=== PATIENT | male | born 1970 | race Two or more races ===

== ENCOUNTER 2023-07-04 19:55 | Inpatient (IN) | payer MEDICAID, OTHER ==
[~2023-07-04] VITALS: Ht 188 cm; Wt 102.3 kg
[2023-07-04 21:54] LABS: Urine Bacteria NONE SEEN /hpf (None Seen); Urine Blood Negative /uL (Negative); Urine Clarity Clear (Clear); Urine Color Colorless (Yellow); Urine Protein, UAD Negative (Negative); Urine Specific Gravity 1.033 (1.001-1.035); Urine Urobilinogen Normal (Negative); Urine WBC <1 /hpf (0 - 3); Urine pH 5.5 (5.0-8.0)
[2023-07-04 21:58] LABS: Basophils # (auto) 0.1 10 ^3/uL (0-0.2); Basophils % (auto) 0.4 % (0.0-2.0); Eosinophils # (auto) 0 10 ^3/uL (0-0.8); Eosinophils % (auto) 0.1 % (0.0-7.0); Hematocrit 42.4 % (41.0-53.0); Hemoglobin 14.7 g/dL (13.5-17.5); Lymphocytes # (auto) 1.2 10 ^3/uL (0.4-5.4); Lymphocytes % (auto) 7.9 % (10.0-50.0); Mean Corpuscular Hemoglobin 31.6 pg (28.0-32.0); Mean Corpuscular Hgb Conc. 34.6 g/dL (32.0-36.0); Mean Corpuscular Volume 91.3 fL (80.0-100.0); Neutrophils # (auto) 12.6 10 ^3/uL (1.6-8.6); Neutrophils % (auto) 84.6 % (37.0-80.0); Nucleated Red Blood Cells % 0.2 %; Red Blood Cells 4.64 10^6/uL (4.5-5.90); Red Cell Distribution Width 12.7 % (11.8-14.3); White Blood Cell 14.8 10^3/uL (4.4-10.8)
[2023-07-04 22:07] LABS: Alanine Aminotransferase 15 U/L (7-40); Albumin 4.3 g/dL (3.2-4.8); Alkaline Phosphatase 90 U/L (46-116); Anion Gap 9.9 (5-15); Aspartate Aminotransferase 10 U/L (13-40); BUN/Creatinine Ratio 12.4 (10.0-20.0); Blood Urea Nitrogen 11 mg/dL (9-23); Calcium 9.3 mg/dL (8.5-10.1); Carbon Dioxide 20.1 mmol/L (20-30); Chloride 100 mmol/L (98-107); Glucose 343 mg/dL (74-106); Sodium 130 mmol/L (136-145); Total Protein 7.5 g/dL (5.7-8.2)
[2023-07-05] MEDS ORDERED: IOHEXOL 300 MG/ML 100ML BOTTLE IJ ONE (02:45)
[2023-07-05] MEDS ORDERED: cefTRIAXone 1GM/50ML D5W 50 ML IV ONE (04:00)
[2023-07-05] MEDS ORDERED: HYDROmorphone HCL 2 MG/ML VL/or syr IV ONE (04:00)
[2023-07-05] MEDS ORDERED: ONDANSETRON HCL 4 MG/2 ML VIAL IV ONE (04:00)
[2023-07-05] MEDS ORDERED: ACETAMINOPHEN 325 MG TAB PO PRN (07:45)
[2023-07-05] MEDS ORDERED: DEXTROSE (50%) 50ML SYRG IV PRN ×4 (07:45→21:15)
[2023-07-05] MEDS ORDERED: ONDANSETRON HCL 4 MG/2 ML VIAL IV PRN (07:45)
[2023-07-05] MEDS ORDERED: DOCUSATE SOD 100 MG CAP PO PRN (07:45)
[2023-07-05] MEDS: SODIUM CHLORIDE 0.9% 1,000 ML IV SCH ×2 (07:55→23:14)
[2023-07-05] MEDS: INSULIN LANTUS (GLARGINE) 1 /0.01ml (100units/ml) SC SCH ×2 (08:01→21:46)
[2023-07-05 08:06] LABS: Basophils # (auto) 0.1 10 ^3/uL (0-0.2); Basophils % (auto) 0.4 % (0.0-2.0); Eosinophils # (auto) 0 10 ^3/uL (0-0.8); Hemoglobin 14.9 g/dL (13.5-17.5); Lymphocytes % (auto) 12.2 % (10.0-50.0); Mean Corpuscular Hemoglobin 31.3 pg (28.0-32.0); Mean Corpuscular Hgb Conc. 33.8 g/dL (32.0-36.0); Mean Corpuscular Volume 92.9 fL (80.0-100.0); Monocytes # (auto) 1.3 10 ^3/uL (0-1.3); Monocytes % (auto) 7.7 % (0.0-12.0); Neutrophils # (auto) 12.9 10 ^3/uL (1.6-8.6); Neutrophils % (auto) 79.7 % (37.0-80.0); Nucleated Red Blood Cells % 0.1 %; Red Blood Cells 4.74 10^6/uL (4.5-5.90); Red Cell Distribution Width 12.6 % (11.8-14.3); White Blood Cell 16.2 10^3/uL (4.4-10.8)
[2023-07-05] MEDS ORDERED: NITROGLYCERIN 0.4 MG SL TAB SL PRN (08:30)
[2023-07-05] MEDS ORDERED: MORPHINE SULFATE INJ 2 MG/ml SYRG IV PRN (08:30)
[2023-07-05 08:39] LABS: Alanine Aminotransferase 132 U/L (7-40); Albumin 4.5 g/dL (3.2-4.8); Alkaline Phosphatase 128 U/L (46-116); Anion Gap 13.8 (5-15); Aspartate Aminotransferase 281 U/L (13-40); BUN/Creatinine Ratio 16.1 (10.0-20.0); Bilirubin, Total 2.8 mg/dL (0.2-1.0); Blood Urea Nitrogen 15 mg/dL (9-23); Calcium 9.4 mg/dL (8.5-10.1); Carbon Dioxide 17.2 mmol/L (20-30); Chloride 98 mmol/L (98-107); Glucose 390 mg/dL (74-106); Potassium 4.5 mmol/L (3.5-5.1); Sodium 129 mmol/L (136-145); Total Protein 7.9 g/dL (5.7-8.2)
[2023-07-05] MEDS ORDERED: InsuLIN REG 1unit/0.01ml Soln (100units/ml) SC SCH ×2 (11:30→22:00)
[2023-07-05] MEDS: ACCU-CHEK COMFORT CURVE STRIP VI SCH ×3 (11:57→21:43)
[2023-07-05] MEDS ORDERED: InsuLIN REG 1unit/0.01ml Soln (100units/ml) SC ONE (12:00)
[2023-07-05] MEDS ORDERED: VANCOMYCIN PER PHARMACY 0 MG IV SCH (13:00)
[2023-07-05] MEDS ORDERED: VANCOMYCIN 1GM/250ML 250 ML IV ONE (13:15)
[2023-07-05 13:56] VITALS: BP 131/82; PULSE 84; RESP 18; TEMP 97.7; O2SAT 95
[2023-07-05] MEDS ORDERED: GLIP10TA9 PO (14:34)
[2023-07-05] MEDS ORDERED: METF-370 PO (14:34)
[2023-07-05] MEDS ORDERED: ACCU-CHEK COMFORT CURVE STRIP VI SCH (16:00)
[2023-07-05] MEDS: HYDROcodone-ACET 5/325MG TAB PO PRN (16:50)
[2023-07-05 17:00] VITALS: BP 151/84; PULSE 88; RESP 18; TEMP 98.7; O2SAT 97
[2023-07-05 20:00] VITALS: PULSE 102; RESP 18; O2SAT 93
[2023-07-05] MEDS: InsuLIN REG 1unit/0.01ml Soln (100units/ml) SC SCH (21:51)
[2023-07-05] MEDS: MORPHINE SULFATE INJ 2 MG/ml SYRG IV PRN (22:00)
[2023-07-05 22:20] VITALS: BP 155/78; PULSE 102; RESP 18; TEMP 98.6; O2SAT 93
[2023-07-05] MEDS: VANCOMYCIN 1GM/250ML 250 ML IV SCH (23:09)
[2023-07-06] VITALS (7 sets, daily range): BP systolic 125–133; BP diastolic 71–76; PULSE 88–94; RESP 16–18; TEMP 98.5–99.8; O2SAT 91–98
[2023-07-06 06:09] LABS: Basophils # (auto) 0 10 ^3/uL (0-0.2); Basophils % (auto) 0.2 % (0.0-2.0); Eosinophils # (auto) 0 10 ^3/uL (0-0.8); Eosinophils % (auto) 0.2 % (0.0-7.0); Hematocrit 39.3 % (41.0-53.0); Hemoglobin 13.7 g/dL (13.5-17.5); Lymphocytes # (auto) 1.5 10 ^3/uL (0.4-5.4); Mean Corpuscular Hemoglobin 31.8 pg (28.0-32.0); Mean Corpuscular Hgb Conc. 34.8 g/dL (32.0-36.0); Mean Corpuscular Volume 91.4 fL (80.0-100.0); Monocytes # (auto) 1.1 10 ^3/uL (0-1.3); Monocytes % (auto) 8.3 % (0.0-12.0); Neutrophils # (auto) 10.8 10 ^3/uL (1.6-8.6); Neutrophils % (auto) 80.3 % (37.0-80.0); Red Cell Distribution Width 12.2 % (11.8-14.3); White Blood Cell 13.5 10^3/uL (4.4-10.8)
[2023-07-06] MEDS: ACCU-CHEK COMFORT CURVE STRIP VI SCH ×4 (06:35→22:22)
[2023-07-06 06:37] LABS: Alanine Aminotransferase 55 U/L (7-40); Albumin 3.7 g/dL (3.2-4.8); Alkaline Phosphatase 103 U/L (46-116); Anion Gap 8.5 (5-15); Aspartate Aminotransferase 31 U/L (13-40); BUN/Creatinine Ratio 14.6 (10.0-20.0); Blood Urea Nitrogen 13 mg/dL (9-23); Calcium 8.7 mg/dL (8.7-10.4); Carbon Dioxide 24.5 mmol/L (20-30); Chloride 99 mmol/L (98-107); Potassium 3.9 mmol/L (3.5-5.1); Sodium 132 mmol/L (136-145)
[2023-07-06 06:38] LABS: Total Protein 6.6 g/dL (5.7-8.2)
[2023-07-06] MEDS: InsuLIN REG 1unit/0.01ml Soln (100units/ml) SC SCH ×4 (06:38→22:33)
[2023-07-06] MEDS: INSULIN LANTUS (GLARGINE) 1 /0.01ml (100units/ml) SC SCH ×2 (06:39→22:32)
[2023-07-06 06:48] LABS: Glucose 248 mg/dL (74-106)
[2023-07-06] MEDS: cefTRIAXone 1GM/50ML D5W 50 ML IV SCH (09:26)
[2023-07-06] MEDS: VANCOMYCIN 1GM/250ML 250 ML IV SCH ×2 (09:27→18:54)
[2023-07-06] MEDS: MORPHINE SULFATE INJ 2 MG/ml SYRG IV PRN ×3 (09:28→22:22)
[2023-07-06] MEDS: SODIUM CHLORIDE 0.9% 1,000 ML IV SCH (16:49)
[2023-07-07] MEDS: VANCOMYCIN 1GM/250ML 250 ML IV SCH ×3 (02:57→18:28)
[2023-07-07] MEDS: HYDROcodone-ACET 5/325MG TAB PO PRN ×2 (03:03→22:10)
[2023-07-07 04:53] VITALS: BP 109/59; PULSE 81; RESP 18; TEMP 98.4; O2SAT 94
[2023-07-07] MEDS: ACCU-CHEK COMFORT CURVE STRIP VI SCH ×4 (06:29→22:02)
[2023-07-07] MEDS: INSULIN LANTUS (GLARGINE) 1 /0.01ml (100units/ml) SC SCH ×2 (06:31→22:08)
[2023-07-07] MEDS: InsuLIN REG 1unit/0.01ml Soln (100units/ml) SC SCH ×4 (06:32→22:08)
[2023-07-07 08:43] VITALS: BP 120/70; PULSE 75; RESP 21; TEMP 98.2; O2SAT 97
[2023-07-07] MEDS: cefTRIAXone 1GM/50ML D5W 50 ML IV SCH (09:28)
[2023-07-07] MEDS: SODIUM CHLORIDE 0.9% 1,000 ML IV SCH (09:29)
[2023-07-07 11:06] LABS: Hepatitis B Surface Antigen Negative (Negative)
[2023-07-07 11:28] LABS: Hepatitis C Antibody Negative (Negative)
[2023-07-07 13:00] VITALS: BP 132/74; PULSE 81; RESP 21; TEMP 97.6; O2SAT 94
[2023-07-07 16:44] VITALS: BP 140/80; PULSE 84; RESP 21; TEMP 97.8; O2SAT 97
[2023-07-07 20:00] VITALS: PULSE 85; RESP 17; O2SAT 93
[2023-07-07 22:00] VITALS: BP 132/76; PULSE 85; RESP 18; TEMP 99.5; O2SAT 93
[2023-07-08] MEDS: SODIUM CHLORIDE 0.9% 1,000 ML IV SCH (03:08)
[2023-07-08] MEDS: VANCOMYCIN 1GM/250ML 250 ML IV SCH (03:09)
[2023-07-08 05:00] VITALS: BP 141/79; PULSE 75; RESP 16; TEMP 97.5; O2SAT 98
[2023-07-08] MEDS: ACCU-CHEK COMFORT CURVE STRIP VI SCH ×2 (06:24→11:30)
[2023-07-08] MEDS: INSULIN LANTUS (GLARGINE) 1 /0.01ml (100units/ml) SC SCH (06:32)
[2023-07-08] MEDS: InsuLIN REG 1unit/0.01ml Soln (100units/ml) SC SCH ×2 (06:32→11:30)
[2023-07-08 07:56] VITALS: O2SAT 95
[2023-07-08] MEDS: cefTRIAXone 1GM/50ML D5W 50 ML IV SCH (08:31)
[2023-07-08 08:33] VITALS: BP 135/76; PULSE 76; RESP 21; TEMP 98.5; O2SAT 96
[2023-07-08] MEDS ORDERED: HYDR-4902 PO (11:47)
[2023-07-08] MEDS ORDERED: METF-372 PO (11:47)
[2023-07-08] MEDS ORDERED: CEPH250C PO (11:47)
[2023-07-08] MEDS ORDERED: GLIP5TAB12 PO (11:47)
[2023-07-08] MEDS ORDERED: CLIN300C70 PO (11:47)
[2023-07-08 12:51] VITALS: BP 138/78; PULSE 80; RESP 20; TEMP 98; O2SAT 96
== END 2023-07-08 15:01 | disposition home or self-care (01) | DRG 720 ==
LOC: ER 19:55 → OVERFLOW 07-05 08:23 → WEST WING 07-05 13:49
PROVIDERS: ADMIT Nurse Practitioner Family; ATTEND Family Medicine
DX: A41.9 Sepsis, unspecified organism (principal); E87.1 Hypo-osmolality and hyponatremia; L03.312 Cellulitis of back [any part except buttock and flank]; E11.65 Type 2 diabetes mellitus with hyperglycemia; S20.462A Insect bite (nonvenomous) of left back wall of thorax, initial encounter; W57.XXXA Bitten or stung by nonvenomous insect and other nonvenomous arthropods, initial encounter; E86.0 Dehydration; Z91.199 Patient's noncompliance with other medical treatment and regimen due to unspecified reason; Y92.89 Other specified places as the place of occurrence of the external cause; Y93.89 Activity, other specified; Y99.8 Other external cause status
CPT/HCPCS: 36415; 71250; 76604; 80053; 80202; 81001; 82962; 83036; 85025; 86803; 87040; 87340; 96365; 96367; 96375; G0378; J0696; J1815; J2405